=== PATIENT | male | born 1960 | race Caucasian/White ===

== ENCOUNTER 2024-04-19 14:18 | Emergency (ER) | payer OTHER, SELFPAY ==
[2024-04-19 14:19] VITALS: BP 171/85
[2024-04-19 14:23] LABS: Glucose - Point of Care 87 mg/dl (70-99)
[2024-04-19 14:53] VITALS: BP 145/93
[2024-04-19 14:57] VITALS: BP 146/90
--- NOTE | 2024-04-19 14:57 | ED.GENMED ---
History of Present Illness
General
Chief Complaint: Fainting/Passed Out
Source: patient and spouse
Exam Limitations: none
Time Seen by Provider: 04/19/24 14:57
Nursing documentation reviewed up to this point in time: agreed with
Travel History
Have you had any contact with someone who has COVID-19?: No
Do you have any symptoms of coronavirus? Fever > 100 degrees, chills, cough, shortness of breath, sore throat, loss of taste or smell, muscle aches, or headache?: No
History of Present Illness
History of Present Illness:
63-year-old male presents emergency room complaining of an episode of syncope at about 145 today, and yesterday as well. He was watching a seminar, and states he did not feel that well, woke up sitting on the floor. He feels a little lightheaded
now, but no chest pain or any other complaints.
Past History
Past History
ED Past Medical History: HTN
ED Past Surgical History: None
Social History
Tobacco: Non-smoker
Alcohol: Occasional
Drug: None
Personal:
Living: with family
Employment: Employed
Family History
Family History: Hypertension
Review of Systems
Review of Systems
Allergies reviewed?: Yes
All Other Systems: Not applicable
Constitutional: Reports no symptoms
EENT: Reports no symptoms
Respiratory: Reports no symptoms
Cardiac: Reports syncope
ABD/GI: Reports no symptoms
: Reports no symptoms
Musculoskeletal: Reports no symptoms
Skin: Reports no symptoms
Neurological: Reports no symptoms
Endocrine: Reports no symptoms
Hematologic/Lymphatic: Reports no symptoms
Psychiatric: Reports no symptoms
Phy Exam
Physical Exam
Physical Exam:
Physical Exam
General: no apparent distress, not acutely ill
Neck: supple. no meningeal signs. normal posterior pharynx
Heart: s1/s2 regular rate and rhythm, no murmur. equal radial
pulses.
HEENT: Pupils equal round reactive to light, EOMI
Lungs: no acute respiratory distress. clear bilaterally
Abdomen: normal bowel sounds. not tender. no CVAT
Neuro: alert and oriented. no focal neurological deficits cranial nerves II through XII intact
Skin: no rash
Psychiatric: well kept. interactive and cooperative
Extremities: no edema. no calf tenderness. negative homans. good distal pulses
Course
Orders/Labs/Results
Orders:
Orders
04/19/24 14:22
Electrocardiogram (*1) Urgent
Reason for Study: Chest Pain
EKG- Treatment ONCE
04/19/24 15:06
Cardiac Monitoring- Treatment ONCE
IV Insert/Care/Rem.- Treatment PRN
Pulse Ox/cont/shift [RESP] Stat
Quantity: 1
04/19/24 15:08
Complete Blood Count/With Diff Urgent
Comprehensive Metabolic Panel Urgent
Magnesium Urgent
Troponin I Urgent
Abnormal Lab Results
04/19/24
15:08
MCH 31.3 H pg
(27.0-31.0)
MPV 10.7 H fL
(7.4-10.4)
Abs Immat Gran (auto) 0.1 H 10^3/uL
(0-0.05)
Immature Gran % 0.6 H %
(0-0.5)
04/19/24 15:08
04/19/24 15:08
Vital Signs
Initial and Last Documented VS:
Initial Vital Signs
Temp Pulse Resp BP Pulse Ox
97.8 F 76 20 171/85 96
04/19/24 14:19 04/19/24 14:19 04/19/24 14:19 04/19/24 14:19 04/19/24 14:19
Last Documented Vital Signs
Temp Pulse Resp BP Pulse Ox
97.8 F 64 24 134/78 95
04/19/24 14:19 04/19/24 16:30 04/19/24 16:30 04/19/24 16:00 04/19/24 16:30
MDM/Problems Addressed
Differential Diagnosis Includes:
Vasovagal syncope, dysrhythmia
MDM/Problems Addressed:
63-year-old male with syncope episode. Suspect vasovagal cause. Patient had prodrome. Stable for discharge. Will have patient follow-up with cardiology for Holter monitor.
Chronic conditions affecting care: HTN
Acute Exacerbation and/or Progression of Chronic Illness: HTN
*Pulse Oximetry
Patient hypoxic: no
*EKG
Interpreted by ED Provider?: Yes
EKG Intrepretation Date: 04/19/24
EKG Intrepretation Time: 14:25
Interpretation: abnormal
Comparison EKG: changes noted
Heart Rate: 77
Rate: normal
Rhythm: sinus
[place]: normal axis
Interval: normal interval
QRS Pattern: right bundle branch block
Ischemia: no ischemia
*Cosmetic Manager Interpretation
Rate: normal
Interpretation: normal
Heart Rate: 78
Rhythm: sinus
*Critical Care Note
Total Time (30-74mins, 75-104mins- exclusive of procedures): Not Applicable
Data Reviewed
Review of Other/Old Records Reveals: Testing (Low risk exercise stress test 12/17/2013)
Source: records
Patient Management
Social determinants of health affecting care: Living situation
Escalation/DeEscalation of care consider admission/obs:
Admit not indicated
ED Attending Note
-
Portions of this chart may have been created with voice recognition software.� Occasional wrong word or��sound alike� substitutions may have occurred due to the inherent limitations of voice recognition software.
Discharge Plan
Departure
Patient Disposition: Home (Routine Discharge)
Date of Disposition: 04/19/24
Time of Disposition: 18:03
Patient with high blood pressure during this ER visit?: Yes
Condition: Good
Discharge Problem:
Syncope
Instructions: Syncope (Fainting) (DC), BLOOD PRESSURE
Referrals:
Jesus Lawton CRNP [Family Provider] - Call in 1-3 days for appt
Quan Navarro MD [Active] - Call in 1-3 days for appt
Interventions
Interventions:
*Risk Screen - Suicide Last Done: 04/19/24 14:19
*General Assessment Last Done: 04/19/24 14:19
*Neglect/Abuse Screening Last Done: 04/19/24 14:19
ED- Cardiac Assessment Last Done: 04/19/24 15:00
ED- Neurological Assessment Last Done: 04/19/24 15:00
Discharge Date and Time
Print Language: PERSIAN
[2024-04-19 15:00] VITALS: BP 143/90
[2024-04-19 15:19] LABS: % Basophils 0.8 % (0-2); % Eosinophils 3.8 % (0-6); % Immature Granulocytes 0.6 % (0-0.5); % Lymphocytes 21.2 % (20.5-51.1); % Monocytes 7.3 % (1.7-9.3); % Neutrophils 66.3 % (42.2-75.2); Absolute Basophils 0.1 10^3/uL (0-0.2); Absolute Eosinophils 0.3 10^3/uL (0-0.7); Absolute Immature Granulocytes 0.1 10^3/uL (0-0.05); Absolute Lymphocytes 1.8 10^3/uL (1.2-3.4); Absolute Monocytes 0.6 10^3/uL (0.1-0.6); Absolute Neutrophils 5.7 10^3/uL (1.4-6.5); Hematocrit 43.5 % (39.0-52.0); Hemoglobin 15.9 g/dL (13.0-18.0); Mean Corp Hgb Conc. 36.6 g/dL (33.0-37.0); Mean Corpuscular Hgb 31.3 pg (27.0-31.0); Mean Corpuscular Volume 85.6 fL (80.0-94.0); Mean Platelet Volume 10.7 fL (7.4-10.4); Nucleated Red Blood Cells % 0 % (-); Platelet Count 203 10^3/uL (130-400); Red Blood Cell Count 5.08 10^6/uL (4.70-6.10); Red Cell Dist. Width 12.3 % (11.5-14.5); White Blood Cell Count 8.5 10^3/uL (4.8-10.8)
[2024-04-19 15:38] LABS: ALT (SGPT) 43 U/L (0-50); AST (SGOT) 44 U/L (17-59); Albumin 4.5 g/dl (3.5-5.0); Alkaline Phosphatase 46 U/L (38-126); Blood Urea Nitrogen 15 mg/dl (9-20); Calcium 9.5 mg/dl (8.4-10.2); Carbon Dioxide 25 mmol/L (22-30); Chloride 104 mmol/L (98-107); Glucose 99 mg/dl (70-99); Magnesium 2.1 mg/dl (1.6-2.3); Potassium 3.9 mmol/L (3.5-5.1); Sodium 138 mmol/L (135-145); Total Bilirubin 1.1 mg/dl (0.2-1.3); Total Protein 7.1 g/dl (6.3-8.2); eGFR > 60.00
[2024-04-19 16:00] VITALS: BP 134/78
[2024-04-19 16:15] LABS: Troponin I < 0.012 ng/ml
== END 2024-04-19 18:20 | disposition home or self-care (01) ==
LOC: EMR 14:18
PROVIDERS: EMERGENCY PHYSICIAN Emergency Medicine; FAMILY PHYSICIAN Nurse Practitioner Adult Health
DX: R55 Syncope and collapse (principal); W19.XXXA Unspecified fall, initial encounter; I45.10 Unspecified right bundle-branch block; I10 Essential (primary) hypertension; K21.9 Gastro-esophageal reflux disease without esophagitis
CPT/HCPCS: 99283; 80053; 82962; 83735; 84484; 85025; 93005

== ENCOUNTER → 2024-05-24 13:33 | Outpatient (REF) | payer OTHER, SELFPAY ==
--- NOTE | 2024-05-24 14:46 | CARDSERVDEF ---
Echocardiogram with Definity completed after protocol screening completed. Allergies verified.
Patent IV site: __Rt AC___
IV site flushed with 0.9% NaCl pre and post administration.
Diluted bolus method utilized to enhance visualization of ventricular li.
Total volume given: _4.0___ mL
Patient tolerated all procedures well without complications.
#20 carmita placed Left AC. Definity given. INT d/c'd. dsg applied. Pressure held. No bleeding noted.
== END ==
LOC: RCS 13:33
PROVIDERS: ATTENDING PHYSICIAN Nuclear Medicine Nuclear Cardiology; FAMILY PHYSICIAN Nurse Practitioner Adult Health
DX: I10 Essential (primary) hypertension (principal); R55 Syncope and collapse; I45.10 Unspecified right bundle-branch block; Z82.49 Family history of ischemic heart disease and other diseases of the circulatory system; R94.31 Abnormal electrocardiogram [ECG] [EKG]
CPT/HCPCS: 93017; 93350

== ENCOUNTER → 2024-06-26 11:15 | Outpatient (REF) | payer OTHER, SELFPAY | LOC: RCS 11:15 | PROVIDERS: ATTENDING PHYSICIAN Nuclear Medicine Nuclear Cardiology; FAMILY PHYSICIAN Nurse Practitioner Adult Health | DX: I10 Essential (primary) hypertension (principal); R55 Syncope and collapse; I45.10 Unspecified right bundle-branch block; Z82.49 Family history of ischemic heart disease and other diseases of the circulatory system; R94.31 Abnormal electrocardiogram [ECG] [EKG] | CPT/HCPCS: 93306 ==